=== PATIENT | female | born 1965 | race Caucasian/White ===

== ENCOUNTER 2021-03-11 21:27 | Inpatient (IN) ==
[2021-03-11 23:19] LABS: Basophils % 0.6 %; Eosinophils % 0.9 %; Hematocrit 31.9 % (35.3-44.9); Immature Granulocytes % 1.2 % (0-4); Lymphocytes # 1.1 K/mcL (0.6-4.6); Lymphocytes % 32.3 %; Mean Corpuscular HGB Conc 31.3 g/dL (31.6-35.5); Mean Corpuscular Hemoglobin 28.7 pg (28.0-33.3); Mean Corpuscular Volume 91.4 fL (83.0-100.0); Monocytes # 1.2 K/mcL (0.0-1.3); Monocytes % 33.4 %; Neutrophils # 1.1 K/mcL (1.6-8.9); Platelet Count 220 K/mcL (140-400); Red Blood Count 3.49 M/mcL (3.82-4.97); Red Cell Distribution Width 18.8 % (11.5-14.5); Segmented Neutrophils % 31.6 %; White Blood Count 3.5 K/mcL (4.3-11.1)
[2021-03-11 23:44] LABS: Alanine Aminotransferase 5 Units/L (7-52); Albumin 2.7 g/dL (3.5-5.7); Albumin/Globulin Ratio 0.9 (1.1-2.2); Alkaline Phosphatase 66 Units/L (34-104); Aspartate Amino Transferase 9 Units/L (13-39); BUN/Creatinine Ratio 25 (6-26); Bilirubin,Direct 0.1 mg/dL (0.0-0.2); Bilirubin,Indirect 0.3 mg/dL (0.0-1.0); Bilirubin,Total 0.4 mg/dL (0.3-1.0); Blood Urea Nitrogen 12 mg/dL (6-20); Calcium 8.6 mg/dL (8.6-10.3); Carbon Dioxide 29 mEq/L (23-29); Chloride 96 mEq/L (98-107); Globulin 2.9 g/dL (2.4-3.5); Glucose 98 mg/dL (70-105); Lipase 16 Units/L (11-82); Osmolality,Calculated 280 (280-300); Potassium 3.5 mEq/L (3.5-5.1); Sodium 135 mEq/L (136-145); Total Protein 5.6 g/dL (6.4-8.9); Troponin I < 0.03 ng/mL (< 0.04); eGFR For African Americans > 60 (> 60); eGFR For Non-African Americans > 60 (> 60)
[2021-03-11] MEDS ORDERED: Isovue-370 500 ML BOTTLE IVP ONE (23:52)
[2021-03-11 23:55] LABS: Influenza A PCR Negative (Negative); Influenza B PCR Negative (Negative); Resp. Syncytial Virus PCR Negative (Negative)
[2021-03-12 00:06] LABS: SARS-CoV-2 by PCR (In House) Negative (Negative)
[2021-03-12 00:07] LABS: Anisocytosis 1+ (Not Present); Platelet Estimate Normal (Normal)
[2021-03-12] MEDS ORDERED: cefTRIAXone 1,000 MG in Water for inj. (sterile) 10 ML IVP ONE (02:13)
[2021-03-12] MEDS ORDERED: Azithromycin 250 MG TABLET PO ONE (02:13)
[2021-03-12] MEDS ORDERED: Ondansetron 4 MG/2 ML VIAL IVP STA (02:14)
[2021-03-12] MEDS ORDERED: Naloxone 0.4 MG/ML INJ IVP PRN (03:26)
[2021-03-12] MEDS ORDERED: Acetaminophen 325 MG TABLET PO PRN (03:26)
[2021-03-12 05:22] LABS: Basophils % 0.6 %; Eosinophils % 0.9 %; Hematocrit 31.6 % (35.3-44.9); Immature Granulocytes % 0.6 % (0-4); Lymphocytes % 28.6 %; Mean Corpuscular HGB Conc 31.6 g/dL (31.6-35.5); Mean Corpuscular Volume 91.6 fL (83.0-100.0); Mean Platelet Volume 10.2 fL (9.4-12.4); Monocytes # 1.2 K/mcL (0.0-1.3); Monocytes % 35.2 %; Neutrophils # 1.1 K/mcL (1.6-8.9); Platelet Count 211 K/mcL (140-400); Red Blood Count 3.45 M/mcL (3.82-4.97); Red Cell Distribution Width 18.8 % (11.5-14.5); Segmented Neutrophils % 34.1 %; White Blood Count 3.3 K/mcL (4.3-11.1)
[2021-03-12 05:26] LABS: Lymphocytes # 0.9 K/mcL (0.6-4.6)
[2021-03-12 05:30] LABS: INR 1.4; Prothrombin Time 16.3 Seconds (9.4-12.1)
[2021-03-12 05:33] LABS: Activated Partial Thrombo Time 36.2 Seconds (26.0-36.0)
[2021-03-12 06:05] LABS: % Iron Saturation 18 % (15-50); BUN/Creatinine Ratio 24 (6-26); Blood Urea Nitrogen 12 mg/dL (6-20); Calcium 8.7 mg/dL (8.6-10.3); Carbon Dioxide 30 mEq/L (23-29); Chloride 96 mEq/L (98-107); Ferritin 416 ng/mL (10-120); Glucose 106 mg/dL (70-105); Iron 41 mcg/dL (50-170); Magnesium 1.2 mg/dL (1.6-2.6); Osmolality,Calculated 280 (280-300); Phosphorous 3.7 mg/dL (2.7-4.5); Potassium 3.4 mEq/L (3.5-5.1); Sodium 135 mEq/L (136-145); Thyroid Stimulating Hormone 2.651 mcIU/mL (0.340-5.600); Transferrin 165 mg/dL (203-362); eGFR For African Americans > 60 (> 60); eGFR For Non-African Americans > 60 (> 60)
[2021-03-12 06:07] LABS: Folate 5.4 ng/mL (3.0-16.0)
[2021-03-12 06:11] LABS: Anisocytosis 1+ (Not Present); Platelet Estimate Normal (Normal); Poikilocytosis 1+ (Not Present)
[2021-03-12 08:35] LABS: Bilirubin,Urine Negative (Negative); Blood,Urine Trace-intact (Negative); Clarity,Urine Clear (Clear); Color,Urine Yellow (Yellow); Glucose,Urine (UA) Normal (Normal); Ketones,Urine Trace mg/dL (Negative); Leukocyte Esterase,Urine Negative (Negative); Nitrite,Urine Negative (Negative); PH,Urine 8.5 pH Units (5.0-8.0); Protein,Urine 30 mg/dL (Neg-Trace); Specific Gravity,Urine 1.015 (1.010-1.025); Urobilinogen,Urine Normal (Normal)
[2021-03-12 08:46] LABS: RBC,Urine 0-3 per hpf (0-3); Squamous Epithelial Cell,Urine Few per hpf (None-Few)
[2021-03-12 08:47] LABS: Amorphous Sediment,Urine Few per hpf (None-Few)
[2021-03-12 08:48] LABS: WBC,Urine 0-3 per hpf (0-3)
[2021-03-12] MEDS ORDERED: Ondansetron 4 MG/2 ML VIAL IVP PRN (10:09)
[2021-03-12] MEDS: Ipratropium/Albuterol Neb 3 ML IH PRN (13:55)
[2021-03-12] MEDS: *HR* HYDROcodone/Acet 5/325 mg TABLET PO PRN (14:18)
[2021-03-12] MEDS ORDERED: *HR* LORazepam 1 MG TABLET PO ONE (14:30)
[2021-03-12 16:02] LABS: Total Protein,Pleural Fluid 3.6 g/dL
[2021-03-12 16:22] LABS: RBC,Pleural Fluid 11000 RBC/mcL
[2021-03-12] MEDS: Ondansetron 4 MG/2 ML VIAL IVP SCH (16:40)
[2021-03-12] MEDS ORDERED: Isovue-370 500 ML BOTTLE IVP ONE (16:43)
[2021-03-12 16:45] LABS: Appearance of Pleural Fl Hazy (Clear)
[2021-03-12] MEDS ORDERED: *HR* LORazepam 1 MG TABLET PO PRN (17:10)
[2021-03-12] MEDS: Cyanocobalamin (B-12) 1,000 MCG/ML VIAL SQ ONE (18:13)
[2021-03-12] MEDS: *HR* Dabigatran 150 MG CAPSULE PO SCH (20:58)
[2021-03-12] MEDS: QUEtiapine Fumarate 25 MG TABLET PO SCH (20:58)
[2021-03-13] MEDS: Ondansetron 4 MG/2 ML VIAL IVP SCH ×4 (01:28→18:01)
[2021-03-13 05:20] LABS: Basophils % 0.8 %; Eosinophils % 0.5 %; Hematocrit 31.3 % (35.3-44.9); Hemoglobin 9.7 g/dL (11.5-15.4); Immature Granulocytes % 1.8 % (0-4); Lymphocytes # 0.9 K/mcL (0.6-4.6); Mean Corpuscular Hemoglobin 28.6 pg (28.0-33.3); Mean Corpuscular Volume 92.3 fL (83.0-100.0); Mean Platelet Volume 10.2 fL (9.4-12.4); Neutrophils # 1.6 K/mcL (1.6-8.9); Platelet Count 252 K/mcL (140-400); Red Blood Count 3.39 M/mcL (3.82-4.97); Red Cell Distribution Width 19.1 % (11.5-14.5); Segmented Neutrophils % 40.9 %; White Blood Count 3.9 K/mcL (4.3-11.1)
[2021-03-13 05:26] LABS: Monocytes # 1.3 K/mcL (0.0-1.3)
[2021-03-13 05:36] LABS: BUN/Creatinine Ratio 21 (6-26); Blood Urea Nitrogen 10 mg/dL (6-20); Calcium 8.4 mg/dL (8.6-10.3); Carbon Dioxide 33 mEq/L (23-29); Chloride 99 mEq/L (98-107); Glucose 110 mg/dL (70-105); Osmolality,Calculated 282 (280-300); Potassium 3.7 mEq/L (3.5-5.1); Sodium 136 mEq/L (136-145); eGFR For African Americans > 60 (> 60); eGFR For Non-African Americans > 60 (> 60)
[2021-03-13 05:42] LABS: Anisocytosis 1+ (Not Present); Platelet Estimate Normal (Normal)
[2021-03-13 05:43] LABS: Poikilocytosis 1+ (Not Present)
[2021-03-13 05:44] LABS: Large Platelets Present (Not Present)
[2021-03-13] MEDS: Ipratropium/Albuterol Neb 3 ML IH PRN (05:49)
[2021-03-13] MEDS ORDERED: Cyanocobalamin (B-12) 1,000 MCG/ML VIAL SQ ONE (09:10)
[2021-03-13] MEDS: *HR* Dabigatran 150 MG CAPSULE PO SCH ×2 (09:18→20:17)
[2021-03-13] MEDS: PARoxetine 20 MG TABLET PO SCH (09:18)
[2021-03-13] MEDS: cefTRIAXone 1,000 MG in 0.9 % Sodium Chloride Mini Bag 100 ML IVPB SCH (09:19)
[2021-03-13] MEDS: Azithromycin 500 MG in 0.9 % Sodium Chloride 250 ML IVPB SCH (09:19)
[2021-03-13] MEDS: Cyanocobalamin (B-12) 1,000 MCG/ML VIAL SQ ONE (12:28)
[2021-03-13] MEDS: *HR* HYDROcodone/Acet 5/325 mg TABLET PO PRN (18:02)
[2021-03-13] MEDS: QUEtiapine Fumarate 25 MG TABLET PO SCH (20:16)
[2021-03-14] MEDS: Ondansetron 4 MG/2 ML VIAL IVP SCH ×3 (00:07→13:02)
[2021-03-14 05:52] LABS: Basophils % 0.6 %; Eosinophils % 0.6 %; Hematocrit 31.3 % (35.3-44.9); Hemoglobin 9.8 g/dL (11.5-15.4); Immature Granulocytes % 2.1 % (0-4); Lymphocytes # 0.8 K/mcL (0.6-4.6); Lymphocytes % 16.8 %; Mean Corpuscular HGB Conc 31.3 g/dL (31.6-35.5); Mean Corpuscular Hemoglobin 29.2 pg (28.0-33.3); Mean Corpuscular Volume 93.2 fL (83.0-100.0); Mean Platelet Volume 10.1 fL (9.4-12.4); Monocytes # 1.4 K/mcL (0.0-1.3); Monocytes % 30.2 %; Neutrophils # 2.3 K/mcL (1.6-8.9); Platelet Count 253 K/mcL (140-400); Red Blood Count 3.36 M/mcL (3.82-4.97); Segmented Neutrophils % 49.7 %; White Blood Count 4.7 K/mcL (4.3-11.1)
[2021-03-14 06:23] LABS: BUN/Creatinine Ratio 20 (6-26); Blood Urea Nitrogen 10 mg/dL (6-20); Calcium 8.2 mg/dL (8.6-10.3); Carbon Dioxide 31 mEq/L (23-29); Chloride 99 mEq/L (98-107); Glucose 110 mg/dL (70-105); Osmolality,Calculated 282 (280-300); Potassium 3.4 mEq/L (3.5-5.1); Sodium 136 mEq/L (136-145); eGFR For African Americans > 60 (> 60); eGFR For Non-African Americans > 60 (> 60)
[2021-03-14 07:34] VITALS: BP 103/71; PULSE 87; TEMP 97.7
[2021-03-14] MEDS: *HR* Dabigatran 150 MG CAPSULE PO SCH (08:46)
[2021-03-14] MEDS: PARoxetine 20 MG TABLET PO SCH (08:46)
[2021-03-14] MEDS: cefTRIAXone 1,000 MG in 0.9 % Sodium Chloride Mini Bag 100 ML IVPB SCH (08:54)
[2021-03-14] MEDS: Azithromycin 500 MG in 0.9 % Sodium Chloride 250 ML IVPB SCH (10:08)
[2021-03-14 13:01] VITALS: O2SAT 100
[2021-03-15 16:40] LABS: Fluid Source for Albumin PLEURAL FLUID
== END 2021-03-14 14:46 | disposition home or self-care (01) ==
LOC: EMEROOARM 21:27 → 3ANU 21:27 → SUATTDRO 03-12 02:50 → 3ANU 03-12 02:50
PROVIDERS: ADMIT Internal Medicine; ATTEND Family Medicine

== ENCOUNTER 2021-06-30 12:59 | Inpatient (IN) ==
[2021-06-30] MEDS ORDERED: Isovue-370 500 ML BOTTLE IVP ONE (13:34)
[2021-06-30] MEDS ORDERED: Ondansetron 4 MG/2 ML VIAL IVP PRN ×2 (13:53→17:35)
[2021-06-30] MEDS ORDERED: Morphine Sulfate 2 MG/ML SYRINGE IVP ONE ×2 (13:53→16:45)
[2021-06-30 15:15] LABS: Basophils % 0.3 %; Eosinophils # 0.1 K/mcL (0.0-0.6); Hemoglobin 9.1 g/dL (11.5-15.4); Immature Granulocytes % 2.4 % (0-4); Lymphocytes # 0.7 K/mcL (0.6-4.6); Lymphocytes % 11.1 %; Mean Corpuscular HGB Conc 31.4 g/dL (31.6-35.5); Mean Corpuscular Hemoglobin 31.6 pg (28.0-33.3); Mean Corpuscular Volume 100.7 fL (83.0-100.0); Mean Platelet Volume 9.7 fL (9.4-12.4); Monocytes # 1.1 K/mcL (0.0-1.3); Monocytes % 15.7 %; Neutrophils # 4.6 K/mcL (1.6-8.9); Platelet Count 345 K/mcL (140-400); Red Blood Count 2.88 M/mcL (3.82-4.97); Red Cell Distribution Width 14.8 % (11.5-14.5); Segmented Neutrophils % 69.5 %; White Blood Count 6.7 K/mcL (4.3-11.1)
[2021-06-30 15:22] LABS: INR 1.4; Prothrombin Time 15.9 Seconds (9.4-12.1)
[2021-06-30 15:39] LABS: Alanine Aminotransferase 9 Units/L (7-52); Albumin 2.4 g/dL (3.5-5.7); Alkaline Phosphatase 103 Units/L (34-104); Amylase 28 Units/L (29-103); Aspartate Amino Transferase 13 Units/L (13-39); BUN/Creatinine Ratio 32 (6-26); Bilirubin,Direct 0.1 mg/dL (0.0-0.2); Bilirubin,Indirect 0.2 mg/dL (0.0-1.0); Bilirubin,Total 0.3 mg/dL (0.3-1.0); Blood Urea Nitrogen 18 mg/dL (6-20); Carbon Dioxide 28 mEq/L (23-29); Chloride 101 mEq/L (98-107); Globulin 2.5 g/dL (2.4-3.5); Glucose 90 mg/dL (70-105); Lipase 23 Units/L (11-82); Osmolality,Calculated 283 (280-300); Potassium 3.5 mEq/L (3.5-5.1); Sodium 136 mEq/L (136-145); Total Protein 4.9 g/dL (6.4-8.9); Troponin I < 0.03 ng/mL (< 0.04); eGFR For African Americans > 60 (> 60); eGFR For Non-African Americans > 60 (> 60)
[2021-06-30 16:03] LABS: Bilirubin,Urine Negative (Negative); Blood,Urine Negative (Negative); Clarity,Urine Clear (Clear); Color,Urine Light-Yellow (Yellow); Glucose,Urine (UA) Normal (Normal); Ketones,Urine Negative (Negative); Leukocyte Esterase,Urine Negative (Negative); Nitrite,Urine Negative (Negative); Protein,Urine Trace mg/dL (Neg-Trace); Specific Gravity,Urine 1.024 (1.010-1.025); Urobilinogen,Urine Normal (Normal)
[2021-06-30] MEDS ORDERED: *HR* Promethazine 25 MG/ML VIAL IM PRN (17:35)
[2021-06-30] MEDS ORDERED: Naloxone 0.4 MG/ML INJ IVP PRN (17:35)
[2021-06-30] MEDS ORDERED: Melatonin 3 MG TABLET PO PRN (17:35)
[2021-06-30] MEDS ORDERED: *HR* LORazepam 1 MG TABLET PO PRN (17:56)
[2021-06-30] MEDS ORDERED: *HR* Dabigatran 150 MG CAPSULE PO SCH (21:00)
[2021-06-30] MEDS: cephALEXin 500 MG CAPSULE PO SCH ×2 (22:15→22:21)
[2021-06-30] MEDS: Mirtazapine 15 MG TABLET PO SCH (22:15)
[2021-06-30] MEDS: *HR* OxyCODONE Immed Rel 5 MG TABLET PO PRN (22:20)
[2021-07-01 04:38] LABS: Basophils % 0.5 %; Eosinophils # 0.1 K/mcL (0.0-0.6); Eosinophils % 0.8 %; Hematocrit 29.5 % (35.3-44.9); Hemoglobin 9.3 g/dL (11.5-15.4); Immature Granulocytes % 2.4 % (0-4); Lymphocytes # 0.6 K/mcL (0.6-4.6); Lymphocytes % 9.9 %; Mean Corpuscular HGB Conc 31.5 g/dL (31.6-35.5); Mean Corpuscular Hemoglobin 31.7 pg (28.0-33.3); Mean Corpuscular Volume 100.7 fL (83.0-100.0); Mean Platelet Volume 9.9 fL (9.4-12.4); Monocytes # 1.1 K/mcL (0.0-1.3); Monocytes % 17.1 %; Neutrophils # 4.3 K/mcL (1.6-8.9); Platelet Count 338 K/mcL (140-400); Red Blood Count 2.93 M/mcL (3.82-4.97); Red Cell Distribution Width 15.2 % (11.5-14.5); Segmented Neutrophils % 69.3 %; White Blood Count 6.2 K/mcL (4.3-11.1)
[2021-07-01 04:47] LABS: INR 1.3; Prothrombin Time 14.3 Seconds (9.4-12.1)
[2021-07-01 04:55] LABS: BUN/Creatinine Ratio 26 (6-26); Blood Urea Nitrogen 13 mg/dL (6-20); Carbon Dioxide 30 mEq/L (23-29); Chloride 102 mEq/L (98-107); Glucose 96 mg/dL (70-105); Osmolality,Calculated 282 (280-300); Potassium 3.6 mEq/L (3.5-5.1); Sodium 136 mEq/L (136-145); eGFR For African Americans > 60 (> 60); eGFR For Non-African Americans > 60 (> 60)
[2021-07-01] MEDS: *HR* OxyCODONE Immed Rel 5 MG TABLET PO PRN ×3 (10:02→20:48)
[2021-07-01] MEDS: PARoxetine 30 MG TABLET PO SCH (10:02)
[2021-07-01] MEDS: cephALEXin 500 MG CAPSULE PO SCH ×4 (10:02→20:48)
[2021-07-01] MEDS: Mirtazapine 15 MG TABLET PO SCH (20:48)
[2021-07-01] MEDS: *HR* Dabigatran 150 MG CAPSULE PO SCH (20:49)
[2021-07-02] MEDS: PARoxetine 30 MG TABLET PO SCH (07:57)
[2021-07-02] MEDS: *HR* Dabigatran 150 MG CAPSULE PO SCH (07:57)
[2021-07-02] MEDS: cephALEXin 500 MG CAPSULE PO SCH (07:57)
[2021-07-02 08:29] LABS: Hematocrit 30.5 % (35.3-44.9); Mean Corpuscular HGB Conc 30.5 g/dL (31.6-35.5); Mean Corpuscular Hemoglobin 30.5 pg (28.0-33.3); Mean Platelet Volume 9.5 fL (9.4-12.4); Platelet Count 323 K/mcL (140-400); Red Blood Count 3.05 M/mcL (3.82-4.97); Red Cell Distribution Width 15.6 % (11.5-14.5)
[2021-07-02 08:34] LABS: Hemoglobin 9.3 g/dL (11.5-15.4); White Blood Count 5.2 K/mcL (4.3-11.1)
[2021-07-02] MEDS: *HR* OxyCODONE Immed Rel 5 MG TABLET PO PRN (09:25)
[2021-07-02 09:45] LABS: Eosinophils # 0.2 K/mcL (0.0-0.6); Lymphocytes # 0.7 K/mcL (0.6-4.6); Monocytes # 0.8 K/mcL (0.0-1.3); Neutrophils # 3.2 K/mcL (1.6-8.9); Platelet Estimate Normal (Normal)
[2021-07-02] MEDS ORDERED: Piperacillin/Tazobactam 3.375 GM in 0.9 % Sodium Chloride Mini Bag 100 ML IVPB SCH (10:00)
[2021-07-02 14:07] LABS: Hematocrit 30.7 % (35.3-44.9); Hemoglobin 9.5 g/dL (11.5-15.4)
[2021-07-02] MEDS: Piperacillin/Tazobactam 3.375 GM in 0.9 % Sodium Chloride Mini Bag 100 ML IVPB SCH (21:10)
[2021-07-02] MEDS: Mirtazapine 15 MG TABLET PO SCH (21:10)
[2021-07-02] MEDS: Acetaminophen 325 MG TABLET PO PRN (23:37)
[2021-07-03] MEDS: Piperacillin/Tazobactam 3.375 GM in 0.9 % Sodium Chloride Mini Bag 100 ML IVPB SCH ×3 (04:20→20:41)
[2021-07-03 05:16] LABS: Hematocrit 30.9 % (35.3-44.9); Hemoglobin 9.6 g/dL (11.5-15.4); Mean Corpuscular HGB Conc 31.1 g/dL (31.6-35.5); Mean Corpuscular Hemoglobin 31.2 pg (28.0-33.3); Mean Corpuscular Volume 100.3 fL (83.0-100.0); Mean Platelet Volume 9.6 fL (9.4-12.4); Platelet Count 349 K/mcL (140-400); Red Blood Count 3.08 M/mcL (3.82-4.97); Red Cell Distribution Width 15.5 % (11.5-14.5); White Blood Count 4.5 K/mcL (4.3-11.1)
[2021-07-03 05:31] LABS: BUN/Creatinine Ratio 13 (6-26); Blood Urea Nitrogen 7 mg/dL (6-20); Carbon Dioxide 30 mEq/L (23-29); Chloride 104 mEq/L (98-107); Glucose 93 mg/dL (70-105); Osmolality,Calculated 286 (280-300); Potassium 3.6 mEq/L (3.5-5.1); Sodium 139 mEq/L (136-145); eGFR For African Americans > 60 (> 60); eGFR For Non-African Americans > 60 (> 60)
[2021-07-03 05:46] LABS: Lymphocytes # 0.4 K/mcL (0.6-4.6); Monocytes # 0.5 K/mcL (0.0-1.3); Neutrophils # 3.3 K/mcL (1.6-8.9); Platelet Estimate Normal (Normal)
[2021-07-03 05:47] LABS: Reactive Lymphocytes Present (Not Present)
[2021-07-03] MEDS: PARoxetine 30 MG TABLET PO SCH (08:59)
[2021-07-03 13:55] LABS: Adenovirus Not Detected (Not Detect); Coronavirus 229E Not Detected (Not Detect); Coronavirus HKU1 Not Detected (Not Detect); Coronavirus NL63 Not Detected (Not Detect); Coronavirus OC43 Not Detected (Not Detect); Human Metapneumovirus Not Detected (Not Detect); Human Rhinovirus/Enterovirus Not Detected (Not Detect); Influenza A Subtype 2009 H1 Not Detected (Not Detect); Parainfluenza Virus 1 Not Detected (Not Detect); Parainfluenza Virus 2 Not Detected (Not Detect)
[2021-07-03 13:56] LABS: Bordetella Pertussis Not Detected (Not Detect); Chlamydophila pneumoniae Not Detected (Not Detect); Influenza B Not Detected (Not Detect); Mycoplasma pneumoniae Not Detected (Not Detect); Parainfluenza Virus 3 Not Detected (Not Detect); Parainfluenza Virus 4 Not Detected (Not Detect); Respiratory Syncytial Virus Not Detected (Not Detect)
[2021-07-03 13:58] LABS: SARS-CoV-2 DETECTED (Not Detect)
[2021-07-03 15:49] LABS: Alanine Aminotransferase 12 Units/L (7-52); Albumin 2.5 g/dL (3.5-5.7); Albumin/Globulin Ratio 0.9 (1.1-2.2); Alkaline Phosphatase 82 Units/L (34-104); Aspartate Amino Transferase 22 Units/L (13-39); BUN/Creatinine Ratio 14 (6-26); Bilirubin,Total 0.2 mg/dL (0.3-1.0); Blood Urea Nitrogen 8 mg/dL (6-20); Calcium 8.2 mg/dL (8.6-10.3); Carbon Dioxide 29 mEq/L (23-29); Chloride 102 mEq/L (98-107); Globulin 2.7 g/dL (2.4-3.5); Glucose 120 mg/dL (70-105); Osmolality,Calculated 284 (280-300); Potassium 3.2 mEq/L (3.5-5.1); Sodium 137 mEq/L (136-145); Total Protein 5.2 g/dL (6.4-8.9); eGFR For African Americans > 60 (> 60); eGFR For Non-African Americans > 60 (> 60)
[2021-07-03] MEDS: *HR* Dabigatran 150 MG CAPSULE PO SCH (20:40)
[2021-07-03] MEDS: Mirtazapine 15 MG TABLET PO SCH (20:40)
[2021-07-04] MEDS: Piperacillin/Tazobactam 3.375 GM in 0.9 % Sodium Chloride Mini Bag 100 ML IVPB SCH ×3 (04:14→20:57)
[2021-07-04 05:23] LABS: Basophils % 0.6 %; Eosinophils % 0.2 %; Hematocrit 31.4 % (35.3-44.9); Hemoglobin 9.6 g/dL (11.5-15.4); Lymphocytes # 0.9 K/mcL (0.6-4.6); Lymphocytes % 18.3 %; Mean Corpuscular HGB Conc 30.6 g/dL (31.6-35.5); Mean Corpuscular Hemoglobin 30.1 pg (28.0-33.3); Mean Corpuscular Volume 98.4 fL (83.0-100.0); Mean Platelet Volume 9.8 fL (9.4-12.4); Monocytes # 0.9 K/mcL (0.0-1.3); Monocytes % 18.3 %; Neutrophils # 2.8 K/mcL (1.6-8.9); Platelet Count 336 K/mcL (140-400); Red Blood Count 3.19 M/mcL (3.82-4.97); Red Cell Distribution Width 15.5 % (11.5-14.5); Segmented Neutrophils % 58.6 %; White Blood Count 4.7 K/mcL (4.3-11.1)
[2021-07-04 05:41] LABS: Alanine Aminotransferase 9 Units/L (7-52); Albumin 2.3 g/dL (3.5-5.7); Albumin/Globulin Ratio 0.9 (1.1-2.2); Alkaline Phosphatase 71 Units/L (34-104); Aspartate Amino Transferase 19 Units/L (13-39); BUN/Creatinine Ratio 15 (6-26); Bilirubin,Total 0.2 mg/dL (0.3-1.0); Blood Urea Nitrogen 8 mg/dL (6-20); C-Reactive Protein 41 mg/L (Less than 10); Calcium 7.9 mg/dL (8.6-10.3); Carbon Dioxide 31 mEq/L (23-29); Chloride 101 mEq/L (98-107); Globulin 2.6 g/dL (2.4-3.5); Glucose 94 mg/dL (70-105); Osmolality,Calculated 284 (280-300); Potassium 3.3 mEq/L (3.5-5.1); Sodium 138 mEq/L (136-145); Total Protein 4.9 g/dL (6.4-8.9); eGFR For African Americans > 60 (> 60); eGFR For Non-African Americans > 60 (> 60)
[2021-07-04 05:56] LABS: Platelet Estimate Normal (Normal)
[2021-07-04] MEDS: *HR* Dabigatran 150 MG CAPSULE PO SCH ×2 (08:46→20:57)
[2021-07-04] MEDS: Pantoprazole 40 MG VIAL IVP SCH (08:47)
[2021-07-04] MEDS: PARoxetine 30 MG TABLET PO SCH (08:47)
[2021-07-04] MEDS ORDERED: Bamlanivimab 700 MG, Etesevimab 1,400 MG in 0.9 % Sodium Chloride 100 ML IVPB ONE (12:10)
[2021-07-04] MEDS ORDERED: EPINEPHrine 1 MG/ML VIAL IM PRN (12:10)
[2021-07-04] MEDS ORDERED: Ondansetron 4 MG/2 ML VIAL IVP PRN (12:10)
[2021-07-04] MEDS ORDERED: Acetaminophen 325 MG TABLET PO PRN (12:10)
[2021-07-04] MEDS ORDERED: methylPREDNISolone 125 MG/2 ML VIAL IVP PRN (12:10)
[2021-07-04] MEDS: Mirtazapine 15 MG TABLET PO SCH (20:57)
[2021-07-05] MEDS: Piperacillin/Tazobactam 3.375 GM in 0.9 % Sodium Chloride Mini Bag 100 ML IVPB SCH ×3 (04:35→20:43)
[2021-07-05 06:33] LABS: Basophils % 0.3 %; Hematocrit 29.4 % (35.3-44.9); Immature Granulocytes % 2.6 % (0-4); Lymphocytes # 0.8 K/mcL (0.6-4.6); Lymphocytes % 12.6 %; Mean Corpuscular HGB Conc 30.6 g/dL (31.6-35.5); Mean Corpuscular Hemoglobin 30.3 pg (28.0-33.3); Monocytes # 0.8 K/mcL (0.0-1.3); Neutrophils # 4.7 K/mcL (1.6-8.9); Platelet Count 315 K/mcL (140-400); Red Blood Count 2.97 M/mcL (3.82-4.97); Red Cell Distribution Width 15.8 % (11.5-14.5); Segmented Neutrophils % 72.5 %; White Blood Count 6.4 K/mcL (4.3-11.1)
[2021-07-05 07:12] LABS: Alanine Aminotransferase 7 Units/L (7-52); Albumin 2.2 g/dL (3.5-5.7); Alkaline Phosphatase 60 Units/L (34-104); BUN/Creatinine Ratio 13 (6-26); Bilirubin,Total 0.2 mg/dL (0.3-1.0); Blood Urea Nitrogen 8 mg/dL (6-20); Calcium 7.4 mg/dL (8.6-10.3); Carbon Dioxide 29 mEq/L (23-29); Chloride 100 mEq/L (98-107); Globulin 2.3 g/dL (2.4-3.5); Glucose 95 mg/dL (70-105); Osmolality,Calculated 276 (280-300); Potassium 3.2 mEq/L (3.5-5.1); Sodium 134 mEq/L (136-145); Total Protein 4.5 g/dL (6.4-8.9); eGFR For African Americans > 60 (> 60); eGFR For Non-African Americans > 60 (> 60)
[2021-07-05 08:34] LABS: Aspartate Amino Transferase 17 Units/L (13-39)
[2021-07-05] MEDS: Acetaminophen 325 MG TABLET PO PRN ×2 (08:50→20:53)
[2021-07-05] MEDS: PARoxetine 30 MG TABLET PO SCH (08:51)
[2021-07-05] MEDS: *HR* Dabigatran 150 MG CAPSULE PO SCH ×2 (08:51→20:43)
[2021-07-05] MEDS: Pantoprazole 40 MG VIAL IVP SCH (08:52)
[2021-07-05 20:23] LABS: Appearance of Pleural Fl Hazy (Clear)
[2021-07-05 20:24] LABS: Appearance of Body Fluid Cloudy (Clear); Volume of Body Fluid 1200 mL
[2021-07-05] MEDS: Mirtazapine 15 MG TABLET PO SCH (20:43)
[2021-07-05 20:45] LABS: RBC,Pleural Fluid 2000 RBC/mcL
[2021-07-06] MEDS: Piperacillin/Tazobactam 3.375 GM in 0.9 % Sodium Chloride Mini Bag 100 ML IVPB SCH ×3 (04:24→20:55)
[2021-07-06 05:05] LABS: Basophils % 0.7 %; Eosinophils % 0.2 %; Hematocrit 31.2 % (35.3-44.9); Hemoglobin 9.5 g/dL (11.5-15.4); Immature Granulocytes % 3.9 % (0-4); Lymphocytes % 23.2 %; Mean Corpuscular HGB Conc 30.4 g/dL (31.6-35.5); Mean Corpuscular Hemoglobin 30.4 pg (28.0-33.3); Mean Corpuscular Volume 99.7 fL (83.0-100.0); Mean Platelet Volume 9.9 fL (9.4-12.4); Monocytes # 0.5 K/mcL (0.0-1.3); Monocytes % 11.7 %; Neutrophils # 2.6 K/mcL (1.6-8.9); Platelet Count 294 K/mcL (140-400); Red Blood Count 3.13 M/mcL (3.82-4.97); Red Cell Distribution Width 15.8 % (11.5-14.5); Segmented Neutrophils % 60.3 %; White Blood Count 4.4 K/mcL (4.3-11.1)
[2021-07-06 05:06] LABS: Alanine Aminotransferase 7 Units/L (7-52); Albumin 2.1 g/dL (3.5-5.7); Albumin/Globulin Ratio 0.9 (1.1-2.2); Alkaline Phosphatase 50 Units/L (34-104); Aspartate Amino Transferase 19 Units/L (13-39); BUN/Creatinine Ratio 11 (6-26); Bilirubin,Total 0.2 mg/dL (0.3-1.0); Blood Urea Nitrogen 6 mg/dL (6-20); Calcium 7.4 mg/dL (8.6-10.3); Carbon Dioxide 29 mEq/L (23-29); Chloride 105 mEq/L (98-107); Globulin 2.4 g/dL (2.4-3.5); Glucose 85 mg/dL (70-105); Osmolality,Calculated 285 (280-300); Potassium 3.3 mEq/L (3.5-5.1); Sodium 139 mEq/L (136-145); Total Protein 4.5 g/dL (6.4-8.9); eGFR For African Americans > 60 (> 60); eGFR For Non-African Americans > 60 (> 60)
[2021-07-06] MEDS: Pantoprazole 40 MG VIAL IVP SCH (08:50)
[2021-07-06] MEDS: PARoxetine 30 MG TABLET PO SCH (08:50)
[2021-07-06] MEDS: *HR* Dabigatran 150 MG CAPSULE PO SCH ×2 (08:50→20:54)
[2021-07-06] MEDS: Acetaminophen 325 MG TABLET PO PRN (10:38)
[2021-07-06] MEDS ORDERED: 0.9 % Sodium Chloride 500 ML IV ONE (14:06)
[2021-07-06 14:50] LABS: Bilirubin,Urine Negative (Negative); Blood,Urine Negative (Negative); Clarity,Urine Clear (Clear); Color,Urine Yellow (Yellow); Glucose,Urine (UA) Normal (Normal); Ketones,Urine Trace mg/dL (Negative); Leukocyte Esterase,Urine Negative (Negative); Nitrite,Urine Negative (Negative); PH,Urine 5.5 pH Units (5.0-8.0); Protein,Urine Trace mg/dL (Neg-Trace); Specific Gravity,Urine > 1.030 (1.010-1.025); Urobilinogen,Urine Normal (Normal)
[2021-07-06] MEDS: Mirtazapine 15 MG TABLET PO SCH (20:55)
[2021-07-07] MEDS: Piperacillin/Tazobactam 3.375 GM in 0.9 % Sodium Chloride Mini Bag 100 ML IVPB SCH ×3 (04:28→21:03)
[2021-07-07] MEDS: Pantoprazole 40 MG VIAL IVP SCH (08:31)
[2021-07-07] MEDS: Acetaminophen 325 MG TABLET PO PRN ×2 (08:31→21:03)
[2021-07-07] MEDS: *HR* Dabigatran 150 MG CAPSULE PO SCH ×2 (08:32→21:03)
[2021-07-07] MEDS: PARoxetine 30 MG TABLET PO SCH (08:32)
[2021-07-07] MEDS: Mirtazapine 15 MG TABLET PO SCH (21:03)
[2021-07-08] MEDS: Piperacillin/Tazobactam 3.375 GM in 0.9 % Sodium Chloride Mini Bag 100 ML IVPB SCH ×3 (04:15→19:59)
[2021-07-08] MEDS: *HR* Dabigatran 150 MG CAPSULE PO SCH ×2 (08:44→20:00)
[2021-07-08] MEDS: PARoxetine 30 MG TABLET PO SCH (08:45)
[2021-07-08] MEDS: Mirtazapine 15 MG TABLET PO SCH (20:00)
[2021-07-08] MEDS: Acetaminophen 325 MG TABLET PO PRN (20:04)
[2021-07-09] MEDS: Piperacillin/Tazobactam 3.375 GM in 0.9 % Sodium Chloride Mini Bag 100 ML IVPB SCH ×2 (04:22→12:15)
[2021-07-09 05:56] LABS: Basophils % 0.3 %; Eosinophils # 0.1 K/mcL (0.0-0.6); Eosinophils % 1.1 %; Hematocrit 31.6 % (35.3-44.9); Hemoglobin 9.7 g/dL (11.5-15.4); Immature Granulocytes % 2.1 % (0-4); Lymphocytes # 1.3 K/mcL (0.6-4.6); Lymphocytes % 20.5 %; Mean Corpuscular HGB Conc 30.7 g/dL (31.6-35.5); Mean Corpuscular Hemoglobin 30.8 pg (28.0-33.3); Mean Corpuscular Volume 100.3 fL (83.0-100.0); Monocytes # 0.6 K/mcL (0.0-1.3); Monocytes % 9.9 %; Neutrophils # 4.1 K/mcL (1.6-8.9); Platelet Count 372 K/mcL (140-400); Red Blood Count 3.15 M/mcL (3.82-4.97); Red Cell Distribution Width 15.9 % (11.5-14.5); Segmented Neutrophils % 66.1 %; White Blood Count 6.2 K/mcL (4.3-11.1)
[2021-07-09 06:05] LABS: BUN/Creatinine Ratio 14 (6-26); Blood Urea Nitrogen 7 mg/dL (6-20); Calcium 7.4 mg/dL (8.6-10.3); Carbon Dioxide 27 mEq/L (23-29); Chloride 109 mEq/L (98-107); Glucose 105 mg/dL (70-105); Osmolality,Calculated 288 (280-300); Potassium 3.5 mEq/L (3.5-5.1); Sodium 140 mEq/L (136-145); eGFR For African Americans > 60 (> 60); eGFR For Non-African Americans > 60 (> 60)
[2021-07-09] MEDS: PARoxetine 30 MG TABLET PO SCH (09:49)
[2021-07-09] MEDS: *HR* Dabigatran 150 MG CAPSULE PO SCH (09:49)
[2021-07-09 12:34] VITALS: BP 115/75; PULSE 85; TEMP 98.1; O2SAT 95
== END 2021-07-09 18:02 | disposition home health service (06) | DRG 137 ==
LOC: 3ANU 12:59 → EMEROOARM 12:59 → SUATTDRO 17:40 → 3ANU 18:23 → SUATTDRO 07-03 19:10
PROVIDERS: ADMIT Pharmacist; ATTEND Hospitalist

== ENCOUNTER 2021-10-13 12:22 | Inpatient (IN) ==
[2021-10-13] MEDS ORDERED: Ondansetron ODT 4 MG TAB.RAPDIS SL PRN (14:08)
[2021-10-13] MEDS: *HR* HYDROmorphone PCA *PREMADE* 20 MG/1MG/ML (20mL) PCA VIAL IVC PRN ×2 (15:30→21:35)
[2021-10-13] MEDS: 0.9 % Sodium Chloride 500 ML IVC SCH (15:46)
[2021-10-13] MEDS: *HR* LORazepam Oral Conc 2 MG/ML SL SCH ×2 (15:46→20:30)
[2021-10-13] MEDS: dexAMETHasone 4 MG TABLET PO SCH (16:12)
[2021-10-13] MEDS: *HR* Dabigatran 150 MG CAPSULE PO SCH (20:29)
[2021-10-13] MEDS: Mirtazapine 15 MG TABLET PO SCH (20:29)
[2021-10-14] MEDS: *HR* LORazepam Oral Conc 2 MG/ML SL SCH ×6 (00:38→21:58)
[2021-10-14] MEDS: *HR* HYDROmorphone PCA *PREMADE* 20 MG/1MG/ML (20mL) PCA VIAL IVC PRN ×3 (08:10→21:08)
[2021-10-14] MEDS: PARoxetine 20 MG TABLET PO SCH (08:34)
[2021-10-14] MEDS: *HR* Dabigatran 150 MG CAPSULE PO SCH ×2 (08:34→19:56)
[2021-10-14] MEDS: dexAMETHasone 4 MG TABLET PO SCH ×2 (08:34→18:18)
[2021-10-14 14:04] LABS: eGFR For African Americans > 60 (> 60); eGFR For Non-African Americans > 60 (> 60)
[2021-10-14] MEDS: 0.9 % Sodium Chloride 500 ML IVC SCH (16:46)
[2021-10-14] MEDS: Mirtazapine 15 MG TABLET PO SCH (19:56)
[2021-10-15] MEDS: *HR* LORazepam Oral Conc 2 MG/ML SL SCH ×6 (01:59→22:13)
[2021-10-15] MEDS: *HR* HYDROmorphone PCA *PREMADE* 20 MG/1MG/ML (20mL) PCA VIAL IVC PRN ×4 (04:29→21:08)
[2021-10-15] MEDS: PARoxetine 20 MG TABLET PO SCH (10:28)
[2021-10-15] MEDS: *HR* Dabigatran 150 MG CAPSULE PO SCH ×2 (10:28→20:47)
[2021-10-15] MEDS: dexAMETHasone 4 MG TABLET PO SCH ×2 (10:29→16:01)
[2021-10-15] MEDS: 0.9 % Sodium Chloride 500 ML IVC SCH (14:18)
[2021-10-15] MEDS: *HR* Methadone 10 MG TABLET PO SCH (16:01)
[2021-10-15] MEDS: Mirtazapine 15 MG TABLET PO SCH (20:47)
[2021-10-16] MEDS: *HR* Methadone 10 MG TABLET PO SCH ×3 (00:04→16:16)
[2021-10-16] MEDS: *HR* LORazepam Oral Conc 2 MG/ML SL SCH ×6 (01:54→21:10)
[2021-10-16] MEDS: *HR* HYDROmorphone PCA *PREMADE* 20 MG/1MG/ML (20mL) PCA VIAL IVC PRN ×3 (04:27→19:28)
[2021-10-16] MEDS: *HR* Dabigatran 150 MG CAPSULE PO SCH ×2 (09:04→21:04)
[2021-10-16] MEDS: dexAMETHasone 4 MG TABLET PO SCH ×2 (09:05→16:16)
[2021-10-16] MEDS: PARoxetine 20 MG TABLET PO SCH (09:05)
[2021-10-16] MEDS: Scopolamine Patch 1.5 MG PATCH.TD72 TD SCH (10:13)
[2021-10-16] MEDS: 0.9 % Sodium Chloride 500 ML IVC SCH (14:13)
[2021-10-16] MEDS: Acetaminophen 325 MG TABLET PO PRN (16:16)
[2021-10-16] MEDS: Mirtazapine 15 MG TABLET PO SCH (21:04)
[2021-10-17] MEDS: *HR* Methadone 10 MG TABLET PO SCH ×3 (00:02→16:46)
[2021-10-17] MEDS: *HR* LORazepam Oral Conc 2 MG/ML SL SCH ×6 (02:06→20:44)
[2021-10-17] MEDS: *HR* HYDROmorphone PCA *PREMADE* 20 MG/1MG/ML (20mL) PCA VIAL IVC PRN ×3 (03:41→22:49)
[2021-10-17] MEDS ORDERED: Furosemide 20 MG TABLET PO ONE (10:00)
[2021-10-17] MEDS: dexAMETHasone 4 MG TABLET PO SCH ×2 (10:38→16:46)
[2021-10-17] MEDS: *HR* Dabigatran 150 MG CAPSULE PO SCH ×2 (10:38→20:44)
[2021-10-17] MEDS: PARoxetine 20 MG TABLET PO SCH (10:38)
[2021-10-17] MEDS: 0.9 % Sodium Chloride 500 ML IVC SCH (15:22)
[2021-10-17] MEDS: Benzonatate 100 MG CAPSULE PO PRN (20:44)
[2021-10-17] MEDS: Mirtazapine 15 MG TABLET PO SCH (20:44)
[2021-10-18] MEDS: *HR* Methadone 10 MG TABLET PO SCH ×3 (00:11→17:13)
[2021-10-18] MEDS: *HR* LORazepam Oral Conc 2 MG/ML SL SCH ×6 (02:56→21:35)
[2021-10-18] MEDS: dexAMETHasone 4 MG TABLET PO SCH ×2 (08:46→17:14)
[2021-10-18] MEDS: PARoxetine 20 MG TABLET PO SCH (08:46)
[2021-10-18] MEDS: Benzonatate 100 MG CAPSULE PO PRN ×2 (08:46→21:35)
[2021-10-18] MEDS: *HR* Dabigatran 150 MG CAPSULE PO SCH ×2 (08:46→21:35)
[2021-10-18] MEDS ORDERED: Furosemide 20 MG TABLET PO ONE (16:12)
[2021-10-18] MEDS: *HR* HYDROmorphone PCA *PREMADE* 20 MG/1MG/ML (20mL) PCA VIAL IVC PRN (17:05)
[2021-10-18] MEDS: 0.9 % Sodium Chloride 500 ML IVC SCH (17:14)
[2021-10-18] MEDS: Mirtazapine 15 MG TABLET PO SCH (21:35)
[2021-10-19] MEDS: *HR* Methadone 10 MG TABLET PO SCH ×3 (00:02→17:54)
[2021-10-19] MEDS: *HR* LORazepam Oral Conc 2 MG/ML SL SCH ×6 (02:19→21:44)
[2021-10-19] MEDS: *HR* HYDROmorphone PCA *PREMADE* 20 MG/1MG/ML (20mL) PCA VIAL IVC PRN ×2 (03:21→11:11)
[2021-10-19] MEDS: dexAMETHasone 4 MG TABLET PO SCH ×2 (07:42→17:55)
[2021-10-19] MEDS: *HR* Dabigatran 150 MG CAPSULE PO SCH ×2 (07:43→21:44)
[2021-10-19] MEDS: PARoxetine 20 MG TABLET PO SCH (07:43)
[2021-10-19] MEDS: Scopolamine Patch 1.5 MG PATCH.TD72 TD SCH (11:03)
[2021-10-19] MEDS: Acetaminophen 325 MG TABLET PO PRN (11:03)
[2021-10-19] MEDS ORDERED: Furosemide 20 MG TABLET PO ONE (13:31)
[2021-10-19] MEDS: 0.9 % Sodium Chloride 500 ML IVC SCH (14:43)
[2021-10-19] MEDS: Mirtazapine 15 MG TABLET PO SCH (21:44)
[2021-10-19] MEDS: Benzonatate 100 MG CAPSULE PO PRN (21:44)
[2021-10-20] MEDS: *HR* Methadone 10 MG TABLET PO SCH ×3 (00:27→17:39)
[2021-10-20] MEDS: *HR* LORazepam Oral Conc 2 MG/ML SL SCH ×6 (03:34→21:32)
[2021-10-20] MEDS: *HR* HYDROmorphone PCA *PREMADE* 20 MG/1MG/ML (20mL) PCA VIAL IVC PRN (05:43)
[2021-10-20] MEDS: dexAMETHasone 4 MG TABLET PO SCH ×2 (08:01→17:39)
[2021-10-20] MEDS: PARoxetine 20 MG TABLET PO SCH (08:01)
[2021-10-20] MEDS: *HR* Dabigatran 150 MG CAPSULE PO SCH ×2 (08:01→21:31)
[2021-10-20] MEDS ORDERED: *HR* HYDROmorphone 2 MG/ML SYRINGE IVP PRN (11:52)
[2021-10-20] MEDS ORDERED: *HR* HYDROmorphone 4 MG TABLET PO PRN ×2 (11:53→16:49)
[2021-10-20] MEDS: 0.9 % Sodium Chloride 500 ML IVC SCH (14:52)
[2021-10-20] MEDS: Mirtazapine 15 MG TABLET PO SCH (21:32)
[2021-10-20] MEDS: *HR* HYDROmorphone 2 MG TABLET PO PRN (22:45)
[2021-10-21] MEDS: *HR* Methadone 10 MG TABLET PO SCH ×3 (00:26→16:12)
[2021-10-21] MEDS: *HR* LORazepam Oral Conc 2 MG/ML SL SCH ×6 (02:14→21:42)
[2021-10-21] MEDS: *HR* HYDROmorphone 2 MG TABLET PO PRN ×4 (06:03→21:41)
[2021-10-21] MEDS: dexAMETHasone 4 MG TABLET PO SCH ×2 (07:34→16:13)
[2021-10-21] MEDS: *HR* Dabigatran 150 MG CAPSULE PO SCH ×2 (07:35→21:40)
[2021-10-21] MEDS: PARoxetine 20 MG TABLET PO SCH (07:35)
[2021-10-21] MEDS: 0.9 % Sodium Chloride 500 ML IVC SCH (14:47)
[2021-10-21] MEDS: Mirtazapine 15 MG TABLET PO SCH (21:40)
[2021-10-22] MEDS: *HR* Methadone 10 MG TABLET PO SCH ×3 (00:01→16:59)
[2021-10-22] MEDS: *HR* LORazepam Oral Conc 2 MG/ML SL SCH ×6 (02:21→22:03)
[2021-10-22] MEDS: *HR* HYDROmorphone 2 MG TABLET PO PRN ×4 (05:16→22:03)
[2021-10-22] MEDS: *HR* Dabigatran 150 MG CAPSULE PO SCH ×2 (09:20→22:03)
[2021-10-22] MEDS: PARoxetine 20 MG TABLET PO SCH (09:20)
[2021-10-22] MEDS: dexAMETHasone 4 MG TABLET PO SCH ×2 (09:22→16:58)
[2021-10-22] MEDS: Scopolamine Patch 1.5 MG PATCH.TD72 TD SCH (13:11)
[2021-10-22] MEDS: 0.9 % Sodium Chloride 500 ML IVC SCH (13:12)
[2021-10-22] MEDS: Mirtazapine 15 MG TABLET PO SCH (22:03)
[2021-10-23] MEDS: *HR* Methadone 10 MG TABLET PO SCH ×4 (00:04→23:53)
[2021-10-23] MEDS: *HR* LORazepam Oral Conc 2 MG/ML SL SCH ×6 (02:02→22:15)
[2021-10-23] MEDS: *HR* HYDROmorphone 2 MG TABLET PO PRN (02:02)
[2021-10-23] MEDS: *HR* HYDROmorphone 4 MG TABLET PO PRN ×4 (06:25→22:16)
[2021-10-23] MEDS: PARoxetine 20 MG TABLET PO SCH (08:10)
[2021-10-23] MEDS: *HR* Dabigatran 150 MG CAPSULE PO SCH ×2 (08:10→20:14)
[2021-10-23] MEDS: dexAMETHasone 4 MG TABLET PO SCH ×2 (08:11→17:20)
[2021-10-23] MEDS: Mirtazapine 15 MG TABLET PO SCH (20:14)
[2021-10-24] MEDS: *HR* LORazepam Oral Conc 2 MG/ML SL SCH ×6 (02:02→22:47)
[2021-10-24] MEDS: *HR* HYDROmorphone 4 MG TABLET PO PRN ×4 (02:02→16:06)
[2021-10-24] MEDS: *HR* Methadone 10 MG TABLET PO SCH ×2 (08:06→16:06)
[2021-10-24] MEDS: *HR* Dabigatran 150 MG CAPSULE PO SCH ×2 (08:06→22:46)
[2021-10-24] MEDS: PARoxetine 20 MG TABLET PO SCH (08:07)
[2021-10-24] MEDS: dexAMETHasone 4 MG TABLET PO SCH ×2 (08:07→16:07)
[2021-10-24] MEDS: Acetaminophen 325 MG TABLET PO PRN (08:53)
[2021-10-24] MEDS: Mirtazapine 15 MG TABLET PO SCH (22:47)
[2021-10-25] MEDS: *HR* Methadone 10 MG TABLET PO SCH ×3 (00:07→16:51)
[2021-10-25] MEDS: *HR* LORazepam Oral Conc 2 MG/ML SL SCH ×6 (02:44→22:25)
[2021-10-25] MEDS: *HR* HYDROmorphone 4 MG TABLET PO PRN ×4 (03:46→19:52)
[2021-10-25] MEDS: *HR* Dabigatran 150 MG CAPSULE PO SCH ×2 (08:34→19:52)
[2021-10-25] MEDS: dexAMETHasone 4 MG TABLET PO SCH ×2 (08:35→16:51)
[2021-10-25] MEDS: Scopolamine Patch 1.5 MG PATCH.TD72 TD SCH (08:35)
[2021-10-25] MEDS: PARoxetine 20 MG TABLET PO SCH (08:35)
[2021-10-25] MEDS ORDERED: Saliva Stimulant 44.3ml BOTTLE PO PRN (09:31)
[2021-10-25] MEDS: Mirtazapine 15 MG TABLET PO SCH (19:52)
[2021-10-25] MEDS: Benzonatate 100 MG CAPSULE PO PRN (22:29)
[2021-10-26] MEDS: *HR* Methadone 10 MG TABLET PO SCH ×3 (00:38→15:03)
[2021-10-26] MEDS: *HR* LORazepam Oral Conc 2 MG/ML SL SCH ×7 (02:45→23:07)
[2021-10-26] MEDS: *HR* Dabigatran 150 MG CAPSULE PO SCH ×2 (08:24→23:06)
[2021-10-26] MEDS: dexAMETHasone 4 MG TABLET PO SCH ×2 (08:24→17:19)
[2021-10-26] MEDS: *HR* HYDROmorphone 4 MG TABLET PO PRN ×2 (08:24→15:04)
[2021-10-26] MEDS: PARoxetine 20 MG TABLET PO SCH (08:25)
[2021-10-26] MEDS: Mirtazapine 15 MG TABLET PO SCH (23:06)
[2021-10-27] MEDS: *HR* Methadone 10 MG TABLET PO SCH ×4 (01:03→23:57)
[2021-10-27] MEDS: *HR* HYDROmorphone 4 MG TABLET PO PRN (03:32)
[2021-10-27] MEDS: *HR* LORazepam Oral Conc 2 MG/ML SL SCH ×6 (04:29→22:10)
[2021-10-27] MEDS: dexAMETHasone 4 MG TABLET PO SCH ×2 (09:13→15:49)
[2021-10-27] MEDS: *HR* Dabigatran 150 MG CAPSULE PO SCH ×2 (09:14→20:11)
[2021-10-27] MEDS: PARoxetine 20 MG TABLET PO SCH (09:14)
[2021-10-27] MEDS: Mirtazapine 15 MG TABLET PO SCH (20:11)
[2021-10-28] MEDS: *HR* LORazepam Oral Conc 2 MG/ML SL SCH ×4 (02:19→13:42)
[2021-10-28] MEDS: *HR* HYDROmorphone 4 MG TABLET PO PRN ×2 (04:12→13:42)
[2021-10-28] MEDS: dexAMETHasone 4 MG TABLET PO SCH ×2 (08:31→16:24)
[2021-10-28] MEDS: Scopolamine Patch 1.5 MG PATCH.TD72 TD SCH (08:32)
[2021-10-28] MEDS: *HR* Methadone 10 MG TABLET PO SCH ×2 (08:32→16:23)
[2021-10-28] MEDS: PARoxetine 20 MG TABLET PO SCH (08:32)
[2021-10-28] MEDS: *HR* Dabigatran 150 MG CAPSULE PO SCH (08:32)
[2021-10-28 09:29] VITALS: BP 131/85; PULSE 104; TEMP 97.9; O2SAT 93
== END 2021-10-28 16:45 | disposition home or self-care (01) | DRG 951 ==
LOC: 2ANU 13:53
PROVIDERS: ADMIT Internal Medicine Hospice and Palliative Medicine; ATTEND Internal Medicine Hospice and Palliative Medicine